=== PATIENT | female | born 1955 | race Caucasian/White ===

== ENCOUNTER → 2017-02-24 | Outpatient (CLI) | payer OTHER ==
[~2017-02-24] MED LIST: ALTACE10 MG PO; ASPIR 8181 M1 PO; CALCIUM + D 601 EACH PO; CRESTOR20 MG PO; LEVOTHROID,S0.125 MG PO; LEXAPRO10 MG PO; LOPRESSOR50 MG PO; M VIT PO; PRILOSEC20 MG PO; ZETIA10 MG PO
== END | disposition home or self-care (01) ==
LOC: NUC 07:47
DX: R14.0 Abdominal distension (gaseous) (principal)
CPT/HCPCS: 78226; A9537

== ENCOUNTER → 2017-03-18 | Outpatient (CLI) | payer OTHER | END | disposition home or self-care (01) | LOC: NUC 06:35 | DX: R10.13 Epigastric pain (principal); R14.0 Abdominal distension (gaseous) | CPT/HCPCS: 78264; A9541 ==